=== PATIENT | female | born 2000 | race Hispanic/Latino ===

== ENCOUNTER 2022-08-24 15:13 | Observation (INO) | payer SELFPAY ==
[~2022-08-24 15:13] MED LIST: Iopamidol 300 61% 100 ML VIAL FS ONE
[2022-08-24] MEDS ORDERED: Ketorolac Tromethamine 30 MG/ML VIAL ONE (16:24)
[2022-08-24] MEDS ORDERED: Ondansetron PF 4 MG/2 ML Vial ONE (16:25)
[2022-08-24 16:38] LABS: #Eosinphils 0.1 10x3/uL (0.0-0.5); #Monocytes 0.9 10x3/uL (0.0-1.1); #Neutrophils 15.1 10x3/uL (1.5-8.4); %Basophils 0.2 % (0.0-2.0); %Eosinophils 0.5 % (0.0-6.0); %Lymphocytes 6.3 % (18.0-47.0); %Monocytes 4.9 % (0.0-10.0); %Neutrophils 87.8 % (40.0-75.0); Mean Corpuscular HGB CONC 34.2 g/dL (32.0-36.0); Mean Corpuscular Hemoglobin 27.7 pg (27.0-33.0); Mean Corpuscular Volume 80.9 fl (81.6-98.3); Mean Platelet Volume 9.7 fl (7.4-10.4); Platelet Count 302 10x3/uL (150-450); RBC Distribution Width 12.4 % (11.5-14.5); White Blood Cell (WBC) Count 17.2 10x3/uL (3.5-10.5)
[2022-08-24 16:53] LABS: BHCG - Serum Negative (NEGATIVE); Pregs Control Background? CLEAR/WHITE (CLR/WHITE); Pregs Control Bar Appear? YES (CONTROL BAR)
[2022-08-24 17:05] LABS: Albumin 4.6 g/dL (3.5-5.0); Anion Gap 15 mmol/L (10-20); BUN (Urea Nitrogen) 9 mg/dL (7.0-18.7); Bilirubin, Total 0.5 mg/dL (0.2-1.2); Calc. Creatinine Clearance 0 mL/min (70-130); Calcium 9.6 mg/dL (7.8-10.44); Carbon Dioxide 22 mmol/L (22-29); Chloride 105 mmol/L (98-107); Estimated GFR 127; Glucose 109 mg/dL (70-105); Potassium 3.7 mmol/L (3.5-5.1); Protein, Total 7.7 g/dL (6.0-8.3); Sodium 138 mmol/L (136-145)
[2022-08-24 17:06] LABS: ALT (SGPT) 15 U/L (8-55); AST (SGOT) 17 U/L (5-34); Alkaline Phosphatase 65 U/L (40-110); Globulin 3.1 g/dL (2.4-3.5); Lipase 13 U/L (8-78)
[2022-08-24 18:04] LABS: Bilirubin Neg (Negative); Blood, Urine Negative (Negative); Clarity Clear (Clear); Glucose, Urine (Dipstick) Normal (Negative); Ketone, Urine Negative (Negative); Leukocyte Negative (Negative); Nitrite Negative (Negative); Protein, Urine (Dipstick) Negative (Neg-Trace); Specific Gravity, Urine 1.015 (1.005-1.030); Urobilinogen Normal mg/dL (Less than 2); pH, Urine 6.5 (5.0-9.0)
[2022-08-24] MEDS ORDERED: Morphine 4 MG/ML VIAL ONE (18:18)
[2022-08-24] MEDS ORDERED: CEFAZOLIN 2 GM VIAL ONE (18:18)
[2022-08-24] MEDS ORDERED: metroNIDAZOLE 500 MG/100 ML BAG ONE (18:18)
[2022-08-24 21:18] VITALS: BMI 26.3
[2022-08-25] MEDS ORDERED: Morphine 4 MG/ML VIAL SLOW IVP PRN ×2 (01:50→06:42)
[2022-08-25] MEDS ORDERED: Sodium Chloride 0.9% 1,000 ML IV SCH ×2 (02:00→06:45)
[2022-08-25] MEDS ORDERED: CEFAZOLIN 2 GM in Sodium Chloride 0.9% 100 ML IVPB SCH (02:00)
[2022-08-25] MEDS ORDERED: metroNIDAZOLE 500 MG in Premix Bag 1 BAG IVPB SCH ×2 (02:00→12:00)
[2022-08-25] MEDS ORDERED: Ondansetron PF 4 MG/2 ML Vial IVP PRN ×2 (02:00→06:42)
[2022-08-25] MEDS ORDERED: Ondansetron ODT 4 MG TAB SL PRN (02:00)
[2022-08-25] MEDS ORDERED: FLU VACC QS2022-23(6MO UP)/PF 60 MCG/0.5 ML SYRINGE IM ONE (02:15)
[2022-08-25] MEDS ORDERED: hydrALAZINE 20 MG/ML VIAL SLOW IVP PRN (06:42)
[2022-08-25] MEDS ORDERED: Morphine 2 MG/ML VIAL SLOW IVP PRN (06:42)
[2022-08-25] MEDS ORDERED: Ipratropium/Albuterol 3 ML NEB NEB PRN (06:42)
[2022-08-25] MEDS ORDERED: Promethazine HCl 25 MG/ML VIAL IM PRN (06:42)
[2022-08-25] MEDS ORDERED: Levofloxacin 500 mg/D5W 100 ml Premix Bag IVPB SCH (06:45)
[2022-08-25] MEDS ORDERED: Midazolam HCl 2 mg/2 ml Vial ONE (06:48)
[2022-08-25] MEDS ORDERED: PROPOFOL 20 ML ONE (06:48)
[2022-08-25] MEDS ORDERED: Rocuronium Bromide 10 MG/ML (10ML VIAL) ONE (06:48)
[2022-08-25] MEDS ORDERED: Fentanyl 100 MCG/2 ML VIAL ONE (06:48)
[2022-08-25] MEDS ORDERED: Glycopyrrolate 0.2 MG/ML 5 ML SYRINGE ONE (06:48)
[2022-08-25] MEDS ORDERED: Ondansetron PF 4 MG/2 ML Vial ONE (06:48)
[2022-08-25] MEDS ORDERED: Ketorolac Tromethamine 30 MG/ML VIAL ONE (06:48)
[2022-08-25] MEDS ORDERED: Dexamethasone 20 MG/5 ML VIAL ONE (06:48)
[2022-08-25] MEDS ORDERED: Bupivacaine HCl 0.5%/Epinephrine 1:200,000/PF 30 ml Vial ONE (07:57)
[2022-08-25] MEDS ORDERED: Meperidine HCl/PF 25 MG/ML VIAL ONE (08:13)
[2022-08-25] MEDS ORDERED: Famotidine 20 MG TAB PO SCH (09:00)
[2022-08-25] MEDS ORDERED: Famotidine/PF 20 mg/2ml Vial SLOW IVP SCH (09:00)
[2022-08-25 09:34] VITALS: TEMP 97.6
[2022-08-25] MEDS ORDERED: Acetaminophen 325 MG TAB PO PRN (09:35)
[2022-08-25] MEDS ORDERED: HYDROcodone/Acetaminophen 5/325 mg Tablet PO PRN ×2 (09:35)
[2022-08-25 11:22] VITALS: BP 104/58
[2022-08-25] MEDS ORDERED: Ketorolac Tromethamine 30 MG/ML VIAL IVP SCH (12:00)
== END 2022-08-25 14:24 | disposition home or self-care (01) ==
LOC: CSHERS 15:13 → CSHPED 21:07
PROVIDERS: ADMIT Surgery; ATTEND Surgery
PROC: 0DTJ4ZZ Resection of Appendix, Percutaneous Endoscopic Approach (ICD-10-PCS; principal; 2022-08-24)
DX: K35.80 Unspecified acute appendicitis (principal); Z79.899 Other long term (current) drug therapy; Z88.0 Allergy status to penicillin
CPT/HCPCS: 74177; 80053; 81003; 83690; 84703; 85025; 88304; 96376; C1776; G0378; J1100; J1885; J2175; J2250; J2270; J2405; J2704; J3010; J3490; J7050; Q9967